=== PATIENT | male | born 1965 | race Caucasian/White ===

== ENCOUNTER 2022-08-09 11:33 | Day surgery (SDC) | payer OTHER ==
[~2022-08-09] VITALS: Ht 172.7 cm; Wt 104.5 kg
[~2022-08-09 11:33] MED LIST: AVAPRO75 MG PO; B COMPLEX WITH1 EACH PO; FENOFIBRATE48 MG PO; METFORMIN HCL1000 M1 PO; VITAMIN D250 MCG PO
--- NOTE | 2022-08-09 14:08 | NUR ---
08/09/22 1408 Merlyn Hackett 1356 PT ARRIVED IN PACU SLEEPY WITH NO C/O'S. ABD SOFT AND LAYING ON L SIDE. 1405 REPOSITIONED SELF TO BACK.
--- NOTE | 2022-08-10 10:39 | OR ---
[facility] [address], [place] [address] Signed DATE OF OPERATION: 08/09/2022 SURGEON: Marshall Barlow MD PREOPERATIVE DIAGNOSES: 1. History of diverticular disease with sigmoid resection ([facility]). 2. History of polyps. POSTOPERATIVE DIAGNOSES: 1. Polyps x3. 2. Residual diverticulosis, left colon. PROCEDURE: Total colonoscopy to cecum with cold morcellation polypectomy x3. ANESTHESIA: Intravenous sedation, fentanyl 100 mcg and Versed 7 mg. INDICATIONS: This 56-year-old white man is patient of Dr. Bay Hernandez of [place], [place]. He has a history of sigmoid colectomy by a surgeon at the [facility] in the past for diverticular disease. He has no family history of colon cancer. He does have a personal history of polyps excised in the past by colonoscopy by Dr. George in the [facility]. He currently has no symptoms of bleeding diarrhea or constipation and no family history of colon cancer. He is admitted at this time to undergo colonoscopy. He understands the risks of bleeding, infection, and perforation. FINDINGS: The prep was adequate. Complete colonoscopy was undertaken of the cecum. I did not see a transition point suggestive of anastomosis as regards to colon. He had a significant large and small diverticular change of the left colon and portions of the transverse colon. There were three polyps in aggregate one at 25 cm and another at the cecum and the other in the rectosigmoid, all were excised with cold morcellation technique. DESCRIPTION OF PROCEDURE: The patient was brought to the endoscopy suite and placed in lateral decubitus position, given intravenous sedation to the point of slurred speech and nystagmus. Digital rectal examination was normal. An Olympus video colonoscope was passed in the rectum and manipulated throughout the Electronically Signed By: MARSHALL BARLOW MD 08/10/22 1039 PATIENT NAME: LINDA NICHOLE OPERATIVE REPORT DATE OF : 61 REPORT #: [id number] PHYSICIAN: MARSHALL BARLOW MD PCP: BAY HERNANDEZ DR REPORT IS CONFIDENTIAL AND NOT TO BE RELEASED WITHOUT AUTHORIZATION [facility] [address], [place] [address] Signed colon ultimately intubating the cecum itself. Irrigation was required as necessary. Once the cecum was obtained, the ileocecal valve and appendiceal orifice were identified as normal. The scope was withdrawn from that point and examination undertaken. Immediately noted in the cecum was a small adenomatous appearing polyp, this was excised with cold morcellation technique without difficulty, it was quite small. The scope was withdrawn further and diverticula were once again seen in the left colon. At approximately 25 cm from the anal verge was a small sessile polyp, it was excised with cold morcellation technique as well. Further withdrawal showed a small polyp in the rectosigmoid, which was excised with cold morcellation technique. Passage to the sigmoid several times was undertaken never really identifying a transition point suggestive of prior anastomosis as reported by the patient. Retroflexed view in the rectum was normal. The scope was removed. The patient was taken to the recovery room in good condition. CONCLUDING DIAGNOSES: 1. Polyps x3. 2. Diverticulosis. PLAN: Recommend repeat colonoscopy in three years considering the adenomatous appearing polyps seen on evaluation. He will return to the ongoing care of Dr. Bay Hernandez. MD ERA Frazier/SCOTT /[id number] cc: Bay Hernandez MD [facility] Copies: ~ Electronically Signed By: MARSHALL BARLOW MD 08/10/22 1039 PATIENT NAME: LINDA NICHOLE ANH OPERATIVE REPORT DATE OF : 61 REPORT #: [id number] PHYSICIAN: MARSHALL BARLOW MD PCP: BAY HERNANDEZ DR REPORT IS CONFIDENTIAL AND NOT TO BE RELEASED WITHOUT AUTHORIZATION
== END 2022-08-09 14:30 | disposition home or self-care (01) ==
LOC: OPS 11:33 → DS 11:33 → OPS 13:00 → DS 13:00 → OPS 14:30 → DS 08-17 13:00
PROVIDERS: ATTEND Surgery
PROC: 0DBN8ZZ Excision of Sigmoid Colon, Via Natural or Artificial Opening Endoscopic (ICD-10-PCS; 2022-08-09)
PROC: 0DBH8ZZ Excision of Cecum, Via Natural or Artificial Opening Endoscopic (ICD-10-PCS; principal; 2022-08-09 13:00)
DX: Z12.11 Encounter for screening for malignant neoplasm of colon (principal); Z86.010 Personal history of colon polyps; K57.30 Diverticulosis of large intestine without perforation or abscess without bleeding; Z86.16 Personal history of COVID-19; D12.0 Benign neoplasm of cecum
CPT/HCPCS: 99153; G0500; J2250; J3010; J7121